=== PATIENT | female | born 1935 | race Caucasian/White ===

== ENCOUNTER 2022-12-31 09:07 | Inpatient (IN) | payer OTHER ==
[~2022-12-31] VITALS: Ht 157.5 cm; Wt 84.6 kg
[2022-12-31 10:44] LABS: Basophils # (auto) 0.1 10 ^3/uL (0-0.2); Basophils % (auto) 0.6 % (0.0-2.0); Eosinophils # (auto) 0.2 10 ^3/uL (0-0.8); Eosinophils % (auto) 0.8 % (0.0-7.0); Hematocrit 37.4 % (36.0-46.0); Hemoglobin 12.1 g/dL (12.2-16.2); Lymphocytes # (auto) 1.1 10 ^3/uL (0.4-5.4); Lymphocytes % (auto) 5.8 % (10.0-50.0); Mean Corpuscular Hemoglobin 27.4 pg (28.0-32.0); Mean Corpuscular Hgb Conc. 32.4 g/dL (32.0-36.0); Mean Corpuscular Volume 84.5 fL (80.0-100.0); Monocytes # (auto) 2.1 10 ^3/uL (0-1.3); Monocytes % (auto) 10.5 % (0.0-12.0); Neutrophils # (auto) 16.3 10 ^3/uL (1.6-8.6); Neutrophils % (auto) 82.3 % (37.0-80.0); Red Blood Cells 4.42 10^6/uL (4.0-5.20); Red Cell Distribution Width 14.8 % (11.8-14.3); White Blood Cell 19.8 10^3/uL (4.4-10.8)
[2022-12-31 11:08] LABS: Albumin 2.8 g/dL (3.4-5.0); Calcium 8.6 mg/dL (8.5-10.1); Potassium 3.5 mmol/L (3.5-5.1)
[2022-12-31 11:11] LABS: BUN/Creatinine Ratio 12.3 (10.0-20.0); Bilirubin, Total 0.9 mg/dL (0.2-1.0); Total Protein 6.5 g/dL (6.4-8.2)
[2022-12-31] MEDS ORDERED: metroNIDAZOLE 500MG/100ML 100 ML IV ONE (13:00)
[2022-12-31] MEDS ORDERED: cefTRIAXone 1GM/50ML D5W 50 ML IV ONE (13:00)
[2022-12-31] MEDS ORDERED: FUROSEMIDE 20 MG/2 ML VIAL IV ONE (13:00)
[2022-12-31] MEDS ORDERED: MORPHINE SULFATE INJ 2 MG/ml SYRG IV PRN ×2 (15:30)
[2022-12-31] MEDS ORDERED: SOD CHL 0.45% 1,000 ML IV ONE (15:30)
[2022-12-31] MEDS ORDERED: ONDANSETRON HCL 4 MG/2 ML VIAL IV PRN (15:30)
[2022-12-31] MEDS ORDERED: NITROGLYCERIN 0.4 MG SL TAB SL PRN (15:30)
[2022-12-31 23:40] VITALS: BP 138/68
[2022-12-31] MEDS: PANTOPRAZOLE 40 MG/10 ML VIAL INJ IV SCH (23:47)
[2022-12-31] MEDS: metroNIDAZOLE 500MG/100ML 100 ML IV SCH (23:48)
[2022-12-31] MEDS: CIPROFLOXACIN 400MG/200ML 200 ML IV SCH (23:48)
[2023-01-01 00:38] VITALS: BP_SYST 138; BP_DIAS 38; BP_DIAS 68
[2023-01-01] MEDS ORDERED: VERA120T89 PO (01:45)
[2023-01-01] MEDS ORDERED: POTA10TA51 PO (01:45)
[2023-01-01] MEDS ORDERED: FURO1TAB33 PO (01:45)
[2023-01-01] MEDS ORDERED: APIX2.5T PO (01:45)
[2023-01-01 05:00] VITALS: BP 132/60
[2023-01-01 06:57] LABS: Basophils # (auto) 0.1 10 ^3/uL (0-0.2); Basophils % (auto) 0.3 % (0.0-2.0); Eosinophils # (auto) 0.5 10 ^3/uL (0-0.8); Eosinophils % (auto) 2.6 % (0.0-7.0); Hematocrit 33.6 % (36.0-46.0); Lymphocytes # (auto) 1.7 10 ^3/uL (0.4-5.4); Lymphocytes % (auto) 8.6 % (10.0-50.0); Mean Corpuscular Hemoglobin 27.8 pg (28.0-32.0); Mean Corpuscular Hgb Conc. 32.8 g/dL (32.0-36.0); Mean Corpuscular Volume 84.6 fL (80.0-100.0); Monocytes # (auto) 2.3 10 ^3/uL (0-1.3); Monocytes % (auto) 11.2 % (0.0-12.0); Neutrophils # (auto) 15.7 10 ^3/uL (1.6-8.6); Neutrophils % (auto) 77.3 % (37.0-80.0); Red Blood Cells 3.97 10^6/uL (4.0-5.20); Red Cell Distribution Width 14.4 % (11.8-14.3); White Blood Cell 20.3 10^3/uL (4.4-10.8)
[2023-01-01 07:30] LABS: Potassium 3.1 mmol/L (3.5-5.1)
[2023-01-01 07:41] LABS: Albumin 2.5 g/dL (3.4-5.0); BUN/Creatinine Ratio 15.4 (10.0-20.0); Bilirubin, Total 0.6 mg/dL (0.2-1.0); Calcium 8.3 mg/dL (8.5-10.1); Total Protein 5.7 g/dL (6.4-8.2)
[2023-01-01] MEDS: metroNIDAZOLE 500MG/100ML 100 ML IV SCH ×4 (07:44→21:30)
[2023-01-01 09:00] VITALS: BP 141/60
[2023-01-01] MEDS: CIPROFLOXACIN 400MG/200ML 200 ML IV SCH (09:55)
[2023-01-01] MEDS: PANTOPRAZOLE 40 MG/10 ML VIAL INJ IV SCH ×2 (09:55→21:30)
[2023-01-01 13:00] VITALS: BP_SYST 139; BP_SYST 141; BP_DIAS 60; BP_DIAS 76
[2023-01-01 16:27] VITALS: BP 158/62
[2023-01-01] MEDS ORDERED: hydrALAZINE HCL 20 MG/ML VL IV PRN (17:45)
[2023-01-01] MEDS: SOD CHL 0.45% 1,000 ML IV SCH (18:07)
[2023-01-01] MEDS: FUROSEMIDE 40 MG/4 ML VIAL IV SCH (18:09)
[2023-01-01] MEDS: VANCOMYCIN HCL 125MG/5ML ORAL SOL PO SCH (18:58)
[2023-01-01 22:00] VITALS: BP 135/59
[2023-01-01] MEDS ORDERED: levoFLOXacin 500MG 100 ML IV SCH (22:00)
[2023-01-02] MEDS: VANCOMYCIN HCL 125MG/5ML ORAL SOL PO SCH ×5 (00:26→22:49)
[2023-01-02 05:00] VITALS: BP 145/69
[2023-01-02] MEDS: FUROSEMIDE 40 MG/4 ML VIAL IV SCH (06:02)
[2023-01-02] MEDS: metroNIDAZOLE 500MG/100ML 100 ML IV SCH ×3 (06:02→22:49)
[2023-01-02 07:07] LABS: Basophils # (auto) 0 10 ^3/uL (0-0.2); Basophils % (auto) 0.4 % (0.0-2.0); Eosinophils # (auto) 0.4 10 ^3/uL (0-0.8); Eosinophils % (auto) 3.5 % (0.0-7.0); Hematocrit 32.1 % (36.0-46.0); Hemoglobin 11.1 g/dL (12.2-16.2); Lymphocytes # (auto) 1.4 10 ^3/uL (0.4-5.4); Mean Corpuscular Hemoglobin 28.8 pg (28.0-32.0); Mean Corpuscular Hgb Conc. 34.7 g/dL (32.0-36.0); Mean Corpuscular Volume 83.1 fL (80.0-100.0); Monocytes % (auto) 9.6 % (0.0-12.0); Neutrophils % (auto) 73.5 % (37.0-80.0); Red Blood Cells 3.86 10^6/uL (4.0-5.20); Red Cell Distribution Width 14.3 % (11.8-14.3); White Blood Cell 10.9 10^3/uL (4.4-10.8)
[2023-01-02 07:35] LABS: Albumin 2.5 g/dL (3.4-5.0); Calcium 8.4 mg/dL (8.5-10.1)
[2023-01-02 07:45] LABS: BUN/Creatinine Ratio 13.7 (10.0-20.0); Bilirubin, Total 0.6 mg/dL (0.2-1.0); Total Protein 5.7 g/dL (6.4-8.2)
[2023-01-02 09:00] VITALS: BP 126/72
[2023-01-02] MEDS: PANTOPRAZOLE 40 MG/10 ML VIAL INJ IV SCH ×2 (09:56→22:49)
[2023-01-02] MEDS ORDERED: levoFLOXacin 250MG 50 ML IV SCH (10:00)
[2023-01-02] MEDS ORDERED: POTASSIUM CHLORIDE 40 MEQ, LIDOCAINE 1% (LOCAL ANESTH.) 4 ML in SODIUM CHL 0.9% 250 ML IV ONE (11:30)
[2023-01-02] MEDS ORDERED: diphenhdrAMINE HCL 25 MG CAP PO PRN (11:45)
[2023-01-02 13:02] VITALS: BP 169/76
[2023-01-02] MEDS ORDERED: FUROSEMIDE 40 MG/4 ML VIAL IV SCH (14:00)
[2023-01-02] MEDS: SOD CHL 0.45% 1,000 ML IV SCH (14:28)
[2023-01-02 16:45] VITALS: BP 170/71
[2023-01-02 16:47] VITALS: BP 170/61
[2023-01-02 22:00] VITALS: BP 159/71
[2023-01-03] MEDS: ALBUTEROL SULF 2.5 MG/0.5ML(0.5%) NEB SOLN NEB PRN (00:32)
[2023-01-03 00:52] VITALS: BP 159/71
[2023-01-03 05:00] VITALS: BP 140/74
[2023-01-03] MEDS ORDERED: FUROSEMIDE 20 MG TAB PO SCH (06:00)
[2023-01-03] MEDS: metroNIDAZOLE 500MG/100ML 100 ML IV SCH ×3 (06:19→21:56)
[2023-01-03] MEDS: VANCOMYCIN HCL 125MG/5ML ORAL SOL PO SCH ×4 (06:20→23:50)
[2023-01-03 07:03] LABS: Basophils # (auto) 0 10 ^3/uL (0-0.2); Basophils % (auto) 0.5 % (0.0-2.0); Eosinophils # (auto) 0.4 10 ^3/uL (0-0.8); Hematocrit 33.5 % (36.0-46.0); Hemoglobin 11.5 g/dL (12.2-16.2); Lymphocytes # (auto) 1.4 10 ^3/uL (0.4-5.4); Lymphocytes % (auto) 16.3 % (10.0-50.0); Mean Corpuscular Hemoglobin 28.1 pg (28.0-32.0); Mean Corpuscular Hgb Conc. 34.3 g/dL (32.0-36.0); Mean Corpuscular Volume 81.8 fL (80.0-100.0); Monocytes # (auto) 1.2 10 ^3/uL (0-1.3); Monocytes % (auto) 13.8 % (0.0-12.0); Neutrophils # (auto) 5.5 10 ^3/uL (1.6-8.6); Neutrophils % (auto) 64.4 % (37.0-80.0); Red Blood Cells 4.09 10^6/uL (4.0-5.20); Red Cell Distribution Width 14.2 % (11.8-14.3); White Blood Cell 8.5 10^3/uL (4.4-10.8)
[2023-01-03 07:39] LABS: Albumin 2.6 g/dL (3.4-5.0); Bilirubin, Total 0.5 mg/dL (0.2-1.0); Calcium 8.4 mg/dL (8.5-10.1); Total Protein 5.8 g/dL (6.4-8.2)
[2023-01-03 08:06] LABS: Potassium 2.9 mmol/L (3.5-5.1)
[2023-01-03 09:00] VITALS: BP 138/82
[2023-01-03] MEDS: PANTOPRAZOLE 40 MG/10 ML VIAL INJ IV SCH ×2 (09:33→21:56)
[2023-01-03] MEDS: SOD CHL 0.45% 1,000 ML IV SCH (09:33)
[2023-01-03] MEDS: POTASSIUM EFFERVESENT TAB 25 MEQ PO SCH (09:34)
[2023-01-03 13:00] VITALS: BP 159/80
[2023-01-03] MEDS ORDERED: FUROSEMIDE 40 MG/4 ML VIAL IV SCH (14:00)
[2023-01-03] MEDS ORDERED: VERAPAMIL HCL 120 mg ER tab PO ONE (17:00)
[2023-01-03 17:26] VITALS: BP 181/93
[2023-01-03] MEDS ORDERED: POTASSIUM CHL 20 Meq TABLET PO ONE (17:30)
[2023-01-03] MEDS ORDERED: POTASSIUM CHLORIDE 40 MEQ, LIDOCAINE 1% (LOCAL ANESTH.) 4 ML in SODIUM CHL 0.9% 250 ML IV ONE (17:30)
[2023-01-03] MEDS: FUROSEMIDE 20 MG TAB PO SCH (17:44)
[2023-01-03 21:20] LABS: Magnesium 1.6 mg/dL (1.6-2.6); Potassium 3.3 mmol/L (3.5-5.1)
[2023-01-03 22:00] VITALS: BP 133/77
[2023-01-04 05:00] VITALS: BP 145/77
[2023-01-04] MEDS: FUROSEMIDE 20 MG TAB PO SCH ×2 (05:42→17:35)
[2023-01-04] MEDS: VANCOMYCIN HCL 125MG/5ML ORAL SOL PO SCH ×3 (05:44→17:34)
[2023-01-04] MEDS: metroNIDAZOLE 500MG/100ML 100 ML IV SCH ×3 (05:44→21:24)
[2023-01-04 06:22] LABS: Basophils # (auto) 0.1 10 ^3/uL (0-0.2); Basophils % (auto) 1.1 % (0.0-2.0); Eosinophils # (auto) 1.2 10 ^3/uL (0-0.8); Eosinophils % (auto) 13.1 % (0.0-7.0); Hemoglobin 11.3 g/dL (12.2-16.2); Lymphocytes # (auto) 1.6 10 ^3/uL (0.4-5.4); Mean Corpuscular Hemoglobin 28.6 pg (28.0-32.0); Mean Corpuscular Hgb Conc. 34.3 g/dL (32.0-36.0); Mean Corpuscular Volume 83.2 fL (80.0-100.0); Monocytes # (auto) 1.3 10 ^3/uL (0-1.3); Monocytes % (auto) 14.7 % (0.0-12.0); Neutrophils # (auto) 4.9 10 ^3/uL (1.6-8.6); Neutrophils % (auto) 53.1 % (37.0-80.0); Nucleated Red Blood Cells % 0.1 %; Red Blood Cells 3.96 10^6/uL (4.0-5.20); Red Cell Distribution Width 14.1 % (11.8-14.3); White Blood Cell 9.2 10^3/uL (4.4-10.8)
[2023-01-04 06:26] LABS: Albumin 2.8 g/dL (3.4-5.0); Calcium 8.4 mg/dL (8.5-10.1); Potassium 3.8 mmol/L (3.5-5.1)
[2023-01-04] MEDS: ALBUTEROL SULF 2.5 MG/0.5ML(0.5%) NEB SOLN NEB PRN ×2 (06:29→23:06)
[2023-01-04 06:30] LABS: BUN/Creatinine Ratio 7.2 (10.0-20.0); Bilirubin, Total 0.5 mg/dL (0.2-1.0); Total Protein 5.5 g/dL (6.4-8.2)
[2023-01-04 09:00] VITALS: BP 145/75
[2023-01-04] MEDS: PANTOPRAZOLE 40 MG/10 ML VIAL INJ IV SCH ×2 (09:35→21:23)
[2023-01-04] MEDS: VERAPAMIL HCL 120 mg ER tab PO SCH (09:36)
[2023-01-04] MEDS: POTASSIUM EFFERVESENT TAB 25 MEQ PO SCH (09:36)
[2023-01-04] MEDS: APIXABAN 5 MG TAB PO SCH (09:37)
[2023-01-04 13:00] VITALS: BP 123/60
[2023-01-04] MEDS ORDERED: POTA10TA51 PO (15:05)
[2023-01-04] MEDS ORDERED: FURO1TAB33 PO (15:05)
[2023-01-04 17:00] VITALS: BP 136/73
[2023-01-04 18:31] VITALS: BP 136/73
[2023-01-04 22:00] VITALS: BP 145/74
[2023-01-05] MEDS: VANCOMYCIN HCL 125MG/5ML ORAL SOL PO SCH ×3 (00:19→12:18)
[2023-01-05 05:00] VITALS: BP 159/84
[2023-01-05] MEDS: metroNIDAZOLE 500MG/100ML 100 ML IV SCH ×2 (05:18→14:00)
[2023-01-05] MEDS: FUROSEMIDE 20 MG TAB PO SCH (05:18)
[2023-01-05 06:35] LABS: Basophils # (auto) 0.1 10 ^3/uL (0-0.2); Basophils % (auto) 0.8 % (0.0-2.0); Eosinophils # (auto) 0.9 10 ^3/uL (0-0.8); Eosinophils % (auto) 10.1 % (0.0-7.0); Hematocrit 32.9 % (36.0-46.0); Hemoglobin 11.4 g/dL (12.2-16.2); Lymphocytes # (auto) 1.7 10 ^3/uL (0.4-5.4); Lymphocytes % (auto) 19.1 % (10.0-50.0); Mean Corpuscular Hemoglobin 28.5 pg (28.0-32.0); Mean Corpuscular Hgb Conc. 34.6 g/dL (32.0-36.0); Mean Corpuscular Volume 82.4 fL (80.0-100.0); Monocytes # (auto) 1.3 10 ^3/uL (0-1.3); Monocytes % (auto) 14.1 % (0.0-12.0); Neutrophils % (auto) 55.9 % (37.0-80.0); Nucleated Red Blood Cells % 0.1 %; Red Cell Distribution Width 14.3 % (11.8-14.3); White Blood Cell 8.9 10^3/uL (4.4-10.8)
[2023-01-05 06:47] LABS: Albumin 2.8 g/dL (3.4-5.0); Bilirubin, Total 0.4 mg/dL (0.2-1.0); Calcium 8.6 mg/dL (8.5-10.1); Total Protein 6.1 g/dL (6.4-8.2)
[2023-01-05 06:58] LABS: Potassium 2.9 mmol/L (3.5-5.1)
[2023-01-05] MEDS ORDERED: POTASSIUM CHL 20 Meq TABLET PO ONE (07:15)
[2023-01-05 09:00] VITALS: BP 136/85
[2023-01-05] MEDS ORDERED: POTASSIUM CHLORIDE 40 MEQ, LIDOCAINE 1% (LOCAL ANESTH.) 4 ML in SODIUM CHL 0.9% 250 ML IV ONE (09:00)
[2023-01-05] MEDS: PANTOPRAZOLE 40 MG/10 ML VIAL INJ IV SCH (09:18)
[2023-01-05] MEDS: VERAPAMIL HCL 120 mg ER tab PO SCH (09:19)
[2023-01-05] MEDS: POTASSIUM EFFERVESENT TAB 25 MEQ PO SCH (09:20)
[2023-01-05] MEDS: APIXABAN 5 MG TAB PO SCH (09:22)
[2023-01-05] MEDS ORDERED: POTASSIUM CHL 20MEQ/100ML 100 ML IV ONE (09:45)
[2023-01-05] MEDS: MAGNESIUM SULFATE 1GM/100ML 100 ML IV SCH ×2 (11:23→12:17)
[2023-01-05 13:00] VITALS: BP 137/66
[2023-01-05 16:39] VITALS: BP 153/70
[2023-01-05 16:45] LABS: Calcium 8.6 mg/dL (8.5-10.1); Potassium 3.3 mmol/L (3.5-5.1)
[2023-01-05 16:48] LABS: BUN/Creatinine Ratio 5.4 (10.0-20.0)
[2023-01-05] MEDS ORDERED: FUROSEMIDE 20 MG TAB PO SCH (18:00)
== END 2023-01-05 17:16 | disposition home or self-care (01) | DRG 371 ==
LOC: ER 09:07 → EDBD 09:07 → INTOOBSV 15:27 → UNDOADMIN 15:27 → OVERFLOW 15:27 → WEST WING 22:10 → OBSVTOIN 01-02 10:06
PROVIDERS: ADMIT Internal Medicine; ATTEND Internal Medicine
DX: A04.72 Enterocolitis due to Clostridium difficile, not specified as recurrent (principal); K57.93 Diverticulitis of intestine, part unspecified, without perforation or abscess with bleeding; Y92.89 Other specified places as the place of occurrence of the external cause; T50.1X5A Adverse effect of loop [high-ceiling] diuretics, initial encounter; J44.9 Chronic obstructive pulmonary disease, unspecified; I11.0 Hypertensive heart disease with heart failure; I50.9 Heart failure, unspecified; Z99.81 Dependence on supplemental oxygen; Z79.2 Long term (current) use of antibiotics; Z90.710 Acquired absence of both cervix and uterus
CPT/HCPCS: 36415; 71045; 74176; 80048; 80053; 83605; 83735; 83880; 84132; 84484; 85025; 87040; 87493; 94640; 96361; 96365; 96368; 96375; 97110; 97116; 97163; 97530; C9113; G0378; J0696; J1956; J2001; J2405; J3480; J3490